=== PATIENT | female | born 1955 | race Caucasian/White ===

== ENCOUNTER → 2016-07-12 | Outpatient (REF) | payer OTHER | LOC: M LAB REF 12:49 | PROVIDERS: ATTEND Physician Assistant Medical | DX: J02.9 Acute pharyngitis, unspecified (principal) ==

== ENCOUNTER 2017-02-13 19:33 | Emergency (ER) | payer BC, SELFPAY ==
[~2017-02-13] VITALS: Ht 177.8 cm; Wt 135.0 kg
[2017-02-13] MEDS ORDERED: METF10004 PO (19:54)
[2017-02-13] MEDS ORDERED: VITA-182 PO (19:54)
[2017-02-13] MEDS ORDERED: MOVE1TAB PO (19:54)
[2017-02-13] MEDS ORDERED: FLUC150T PO (19:54)
[2017-02-13] MEDS ORDERED: HYDR25TAB PO (19:54)
[2017-02-13] MEDS ORDERED: ALLE180T33 PO (19:54)
[2017-02-13] MEDS ORDERED: ASPI81CH PO (19:54)
[2017-02-13] MEDS ORDERED: CARV12.5 PO (19:54)
[2017-02-13] MEDS ORDERED: WOMETAB2 PO (19:54)
[2017-02-13] MEDS ORDERED: FISH120012 PO (19:54)
[2017-02-13] MEDS ORDERED: CITA20TA4 PO (19:54)
[2017-02-13] MEDS ORDERED: VITA1CAP40 PO (19:54)
[2017-02-13] MEDS ORDERED: JARD1TAB3 PO (19:54)
[2017-02-13] MEDS ORDERED: LANTINJ4 SC (19:54)
[2017-02-13] MEDS ORDERED: SUPECAP24 PO (19:54)
--- NOTE | 2017-02-13 22:50 | REPUSA ---
CLINICAL HISTORY: Edema. COMMENTS: Real time sonography with duplex doppler of the right lower extremity was performed with attention to the major deep venous structures. Evaluation reveals the right common femoral, superficial femoral and popliteal veins to be completely compressible without intraluminal thrombus. There is normal spontaneous phasic flow and augmentation . The greater saphenous vein is thrombosed from the groin to the knee level. IMPRESSION: No evidence of DVT in right lower extremity. SVT as above. Thank you for your kind referral of this patient.
[2017-02-13] MEDS ORDERED: ASPI325T24 PO (23:07)
[2017-02-13] MEDS ORDERED: BACT800T5 PO (23:08)
[2017-02-13 23:18] VITALS: BP 129/82
== END 2017-02-13 23:19 | disposition home or self-care (01) ==
LOC: M ED 19:33
DX: I80.01 Phlebitis and thrombophlebitis of superficial vessels of right lower extremity (principal); L03.314 Cellulitis of groin; L03.311 Cellulitis of abdominal wall; E11.9 Type 2 diabetes mellitus without complications; I10 Essential (primary) hypertension; M17.11 Unilateral primary osteoarthritis, right knee; Z86.718 Personal history of other venous thrombosis and embolism; Z87.891 Personal history of nicotine dependence; Z88.0 Allergy status to penicillin; Z88.5 Allergy status to narcotic agent; Z79.899 Other long term (current) drug therapy; Z79.4 Long term (current) use of insulin; Z79.82 Long term (current) use of aspirin

== ENCOUNTER 2018-06-07 19:58 | Emergency (ER) | payer BC ==
[2018-06-07 21:11] LABS: BASO # 0.1 10^3/uL (0.0-0.2); BASO % 0.6 % (0.0-1.0); EOS # 0.1 10^3/uL (0.0-0.50); EOS % 1.7 % (0.0-3.0); HEMATOCRIT 41.8 % (36.0-47.0); HEMOGLOBIN 13.5 g/dl (12.0-15.5); IMMATURE GRANULOCYTE % 0.2 % (0-3.0); LYMPH # 2.7 10^3/uL (1.5-4.5); LYMPH % 33.7 % (24.0-44.0); MEAN CORPUSCULAR HEMOGLOBIN 29.5 pg (27.0-33.0); MEAN CORPUSCULAR HGB CONC 32.3 g/dl (32.0-36.5); MEAN CORPUSCULAR VOLUME 91.3 fl (80.0-96.0); MONO # 0.5 10^3/uL (0.0-0.8); MONO % 6.5 % (0.0-5.0); NEUTROPHILS # 4.6 10^3/uL (1.8-7.7); NEUTROPHILS % 57.3 % (36.0-66.0); PLATELET COUNT, AUTOMATED 291 10^3/uL (150-450); RED BLOOD COUNT 4.58 10^6/uL (4.00-5.40); RED CELL DISTRIBUTION WIDTH 14.1 % (11.5-14.5); WHITE BLOOD COUNT 8.1 10^3/uL (4.0-10.0)
[2018-06-07] MEDS: MORPHINE 2 MG/ML 1ML SYRINGE (J2270) IV (21:13)
[2018-06-07 21:37] LABS: LACTIC ACID SEPSIS PROTOCOL 1.1 MMOL/L (0.4-2.0)
[2018-06-07 21:39] LABS: ANION GAP 6 MEQ/L (8-16); BLOOD UREA NITROGEN 14 MG/DL (7-18); C REACTIVE PROTEIN QUANTITATIV 0.65 MG/DL (0.00-0.30); CALCIUM LEVEL 8.7 MG/DL (8.8-10.2); CARBON DIOXIDE LEVEL 33 MEQ/L (21-32); CHLORIDE LEVEL 103 MEQ/L (98-107); CREATININE FOR GFR 0.62 MG/DL (0.55-1.30); GLOMERULAR FILTRATION RATE > 60.0 (>45); GLUCOSE, FASTING 143 MG/DL (70-100); POTASSIUM SERUM 4.1 MEQ/L (3.5-5.1); SODIUM LEVEL 142 MEQ/L (136-145); URIC ACID 4.4 MG/DL (2.6-6.0)
[2018-06-07 21:53] LABS: ERYTHROCYTE SEDIMENTATION RATE 16 mm/hr (0-30)
== END 2018-06-07 23:18 | disposition home or self-care (01) ==
LOC: M ED 19:58
DX: M25.561 Pain in right knee (principal); S80.01XA Contusion of right knee, initial encounter; Y99.9 Unspecified external cause status; E11.9 Type 2 diabetes mellitus without complications; F41.1 Generalized anxiety disorder; M19.90 Unspecified osteoarthritis, unspecified site
CPT/HCPCS: 93971

== ENCOUNTER 2018-06-28 15:45 | Emergency (ER) | payer BC ==
[~2018-06-28] VITALS: Ht 177.8 cm; Wt 131.8 kg
[~2018-06-28 15:45] MED LIST: ALLE180T33 PO; ASPI325T25 PO; ASPI81CH PO; BACT800T5 PO; CARV12.5 PO; CITA20TA4 PO; FISH120012 PO; FLUC150T PO; HYDR25TAB PO; JARD1TAB3 PO; LANTINJ4 SC; METF10004 PO; MOVE1TAB PO; SUPECAP24 PO; VITA-182 PO; VITA50005 PO; WOMETAB2 PO
--- NOTE | 2018-06-28 16:48 | REP ---
Clinical: Syncope/near-syncopal episode . Comparison: 12/09/2010 . Findings: The mediastinum and cardiac silhouette are stable and within normal limits for portable technique. The lung myers are clear without acute consolidation, effusion, or pneumothorax. Skeletal structures are intact. Impression: No acute cardiopulmonary process appreciated. Electronically Signed by Fuentes Rincon MD 06/28/2018 04:39 P
[2018-06-28 16:53] LABS: BASO # 0.1 10^3/uL (0.0-0.2); EOS # 0.1 10^3/uL (0.0-0.50); EOS % 1.5 % (0.0-3.0); HEMATOCRIT 40.7 % (36.0-47.0); HEMOGLOBIN 13.5 g/dl (12.0-15.5); MEAN CORPUSCULAR HEMOGLOBIN 29.2 pg (27.0-33.0); MEAN CORPUSCULAR HGB CONC 33.2 g/dl (32.0-36.5); MEAN CORPUSCULAR VOLUME 88.1 fl (80.0-96.0); MONO # 0.4 10^3/uL (0.0-0.8); MONO % 5.4 % (0.0-5.0); NEUTROPHILS # 5.5 10^3/uL (1.8-7.7); NEUTROPHILS % 67.2 % (36.0-66.0); PLATELET COUNT, AUTOMATED 295 10^3/uL (150-450); RED BLOOD COUNT 4.62 10^6/uL (4.00-5.40); WHITE BLOOD COUNT 8.1 10^3/uL (4.0-10.0)
[2018-06-28] MEDS ORDERED: NS 1,000 ML IV ONE (17:00)
[2018-06-28] MEDS ORDERED: MECLIZINE 25 MG TABLET PO ONE (17:00)
[2018-06-28 17:11] LABS: BLOOD UREA NITROGEN 12 MG/DL (7-18); CALCIUM LEVEL 8.7 MG/DL (8.8-10.2); CARBON DIOXIDE LEVEL 26 MEQ/L (21-32); CHLORIDE LEVEL 107 MEQ/L (98-107); CPK CREATINE PHOSPHOKINASE 75 U/L (26-192); CREATININE FOR GFR 0.46 MG/DL (0.55-1.30); ETHYL ALCOHOL (ETHANOL) < 0.003 % (0.000-0.010); FREE T4 1.16 NG/DL (0.76-1.46); GLOMERULAR FILTRATION RATE > 60.0 (>45); GLUCOSE, FASTING 206 MG/DL (70-100); MAGNESIUM LEVEL 1.7 MG/DL (1.8-2.4); MB/CK RELATIVE INDEX 1.47 (< OR =4); POTASSIUM SERUM 3.8 MEQ/L (3.5-5.1); SODIUM LEVEL 141 MEQ/L (136-145); TROPONIN I < 0.02 NG/ML (< 0.10)
[2018-06-28] MEDS ORDERED: CARVedilol 12.5 MG TAB PO ONE (17:15)
[2018-06-28] MEDS ORDERED: hydroCHLOROthiazide 25 MG TAB PO ONE (17:15)
--- NOTE | 2018-06-28 17:41 | REP ---
Clinical: Syncope . Comparison: None . Findings: The ventricles, sulci, and cisterns are normal in position and appearance. Richardson-white differentiation is maintained. No acute intracranial hemorrhage, mass/mass effect, pathology or trauma/injury. No evidence for acute infarction. No extra-axial fluid collection. Calvarium is intact. Paranasal sinuses and mastoid air cells are clear. Impression: Normal noncontrast head CT. No evidence for acute intracranial pathology or trauma/injury. Electronically Signed by Fuentes Rincon MD 06/28/2018 05:33 P
[2018-06-28] MEDS ORDERED: LABETALOL HCL 100 MG/20 ML VIAL IV STA ×2 (18:32→19:10)
--- NOTE | 2018-06-28 18:45 | ECGEPIP ---
Stationary ECG Study [facility] - ED Test Date: 2018-06-28 Pat Name: BEAN BLUNT Department: Room: - Gender: F Barker Peeler: padmini : [id number] Requested By: Nella Lewis Order Number: [id number] Reading MD: Luis Smith Measurements Intervals [place] Rate: 67 P: 38 NE: 158 QRS: -69 QRSD: 167 T: 17 QT: 468 QTc: 494 Interpretive Statements SINUS RHYTHM RIGHT BUNDLE BRANCH BLOCK LEFT ANTERIOR FASCICULAR BLOCK Electronically Signed On 06-28-2018 18:44:52 EST by Luis Smith
[2018-06-28 19:09] LABS: AMPHETAMINES LEVEL URINE NEGATIVE (NEGATIVE); BARBITURATES URINE NEGATIVE (NEGATIVE); BENZODIAZEPINES URINE NEGATIVE (NEGATIVE); CANNABINOIDS URINE NEGATIVE (NEGATIVE); COCAINE METABOLITE URINE NEGATIVE (NEGATIVE); METHADONE URINE NEGATIVE (NEGATIVE); OPIATES URINE NEGATIVE (NEGATIVE); PHENCYCLIDINE URINE NEGATIVE (NEGATIVE)
[2018-06-28 19:22] VITALS: BP 188/84
[2018-06-28 19:41] VITALS: BP 178/79
[2018-06-28] MEDS ORDERED: MECL-68 PO (20:04)
== END 2018-06-28 20:47 | disposition home or self-care (01) ==
LOC: M ED 15:45
DX: I10 Essential (primary) hypertension (principal); R42 Dizziness and giddiness; E11.9 Type 2 diabetes mellitus without complications; I25.10 Atherosclerotic heart disease of native coronary artery without angina pectoris; Z79.899 Other long term (current) drug therapy; Z79.84 Long term (current) use of oral hypoglycemic drugs; Z79.82 Long term (current) use of aspirin; Z88.0 Allergy status to penicillin; Z88.1 Allergy status to other antibiotic agents; Z88.5 Allergy status to narcotic agent; Z87.891 Personal history of nicotine dependence
CPT/HCPCS: 70450; 71045; 80048; 80307; 82550; 82553; 83735; 84439; 84443; 85025; 93005; 93041; 94760; 96374; 96375; 99285; G0480

== ENCOUNTER → 2019-07-29 | Outpatient (REF) | payer BC ==
[~2019-07-29] MED LIST changes: +ASPI-255 PO; -ASPI325T25 PO; -ASPI81CH PO; +ASPI81CH49 PO; -CITA20TA4 PO; +CITA20TA6 PO; +MECL1TAB31 PO
== END ==
LOC: M LAB REF 14:20
PROVIDERS: ATTEND Family Medicine
DX: Z12.4 Encounter for screening for malignant neoplasm of cervix (principal); N95.8 Other specified menopausal and perimenopausal disorders

== ENCOUNTER → 2020-05-17 | Outpatient (REF) | payer BC ==
[2020-05-17 18:54] LABS: MALB URINE SIEMENS 51.3 MG/L; MAU/CREAT RATIO 39.4 MCG/MG (0.0-30.0)
== END ==
LOC: M LAB REF 16:57
PROVIDERS: ATTEND Internal Medicine Endocrinology, Diabetes & Metabolism
DX: E11.65 Type 2 diabetes mellitus with hyperglycemia (principal)